=== PATIENT | female | born 1975 | race Caucasian/White ===

== ENCOUNTER → 2018-08-23 08:25 | Outpatient (CLI) | payer BC, OTHER, SELFPAY ==
--- NOTE | 2018-08-23 08:39 | MM_ITS ---
MM Dig screening mamm BI w/CAD ORDERING PHYSICIAN : Ajith Valentin PATIENT AGE: 43 years GENDER: Female COMPARISON: September 2015 bilateral mammogram. July 2016 bilateral mammogram. INDICATION: ITS.REASON: SCREENING no hormones. No new complaints previous cyst aspiration right breast. . Noncontributory family history TECHNIQUE: Standard CC and MLO images were obtained. R2 CAD reviewed. FINDINGS: Low-density breast bilaterally with generalized fatty replacement. RIGHT BREAST:No areas of, or concern on right breast. Follow-up in one year. LEFT BREAST: No new areas of concern Small nodular density at the lateral left breast adequately stable with well-defined margins. It measures up to nearly 7 mm a similar to 2016. It can be followed.. Intramammary Lymph node are in this region at 2:00 on a previous 2016 mammogram/ultrasound. IMPRESSION: No new areas of concern either breast. Follow-up in one year recommended Stable small benign-appearing nodule, most likely stable intramammary node, at upper-outer quadrant left breast BI-RADS Category: 2 Benign Finding(s) RECOMMENDED FOLLOW-UP: 1YR 1 YEAR FOLLOW-UP (A letter has been sent to the patient regarding results of the study.)
== END ==
PROVIDERS: PCP Family Medicine; Visit Provider Family Medicine
DX: Z12.31 Encounter for screening mammogram for malignant neoplasm of breast (principal)
CPT/HCPCS: 77067

== ENCOUNTER → 2019-08-31 08:01 | Outpatient (CLI) | payer OTHER, SELFPAY ==
--- NOTE | 2019-08-31 08:03 | MM_ITS ---
PROCEDURE: MM DIG SCREENING MAMM BI W/CAD CLINICAL INDICATION: SCREENING There is no personal or family history of breast cancer. There has been a previous cyst aspiration right breast. COMPARISON: DMDB DIG MAMM-DX TAZ from 09/20/2015 [facility]B DIG MAMM-DX TAZ from 07/21/2016 [facility] MM Dig screening mamm BI w/CAD from 08/23/2018 TECHNIQUE: Standard CC and MLO images were obtained. R2 CAD reviewed. FINDINGS: The breasts are composed primarily of fat with minimal scattered fiberglass densities throughout each breast. There is a stable low-lying left axillary density likely a low-lying node. There is a stable small benign-appearing nodular density upper-outer quadrant left breast. There is no suspicious lesion and no suspicious microcalcifications. IMPRESSION: Fibrofatty parenchyma with no suspicious lesions seen BI-RAD Category: 2 Benign Finding(s) FOLLOW-UP: 1YR 1 Year Follow-up (A letter has been sent to the patient regarding results of the study.) Dictated by: Dr. Sundar Cali MD 09/04/2019 13:[address] Sundar Cali MD in [place] 09/04/2019 13:07
== END ==
PROVIDERS: PCP Family Medicine; Visit Provider Nurse Practitioner Family
DX: Z12.31 Encounter for screening mammogram for malignant neoplasm of breast (principal)
CPT/HCPCS: 77067

== ENCOUNTER → 2020-09-23 07:51 | Outpatient (CLI) | payer OTHER, SELFPAY ==
--- NOTE | 2020-09-23 07:55 | MM_ITS ---
PROCEDURE: MM DIG SCREENING MAMM BI W/CAD Referring Doctor: Zoë Alfonso Patient Age:45Y CLINICAL INDICATION: SCREENING COMPARISON: MG DMDB DIG MAMM-DX TAZ from 07/21/2016 [facility] MM Dig screening mamm BI w/CAD from 08/23/2018 MG MM DIG SCREENING MAMM BI W/CAD from 08/31/2019 TECHNIQUE: Standard CC and MLO images were obtained. R2 CAD reviewed. Bilateral digital breast tomosynthesis included. FINDINGS: Minimal residual fibroglandular elements low-density breast with generalized fatty replacement which which facilitate most mammography screening. No suspicious new masses or dominant masses but no significant suspicious calcifications. CAD computer review unremarkable Right breast but no new areas of concern the fall -Left breast-no new areas of concern Stable small intramammary lymph node lateral left breast of 4 mm size. Stable deep lymph nodes at the margin of both right and left MLO view. IMPRESSION: Stable mammogram. No new areas of concern. Low-density fatty breast which facilitate screening mammography BI-RAD Category: 1 Negative FOLLOW-UP: 1YR 1 Year Follow-up (A letter has been sent to the patient regarding results of the study.) Dictated by: Eugenio Garland MD 09/25/2020 11:23 Eugenio Garland MD in [place] 09/25/2020 11:23
== END ==
PROVIDERS: PCP Nurse Practitioner Family; Visit Provider Nurse Practitioner Family
DX: Z12.31 Encounter for screening mammogram for malignant neoplasm of breast (principal)
CPT/HCPCS: 77063; 77067

== ENCOUNTER → 2022-07-16 10:26 | Outpatient (CLI) | payer OTHER, SELFPAY ==
--- NOTE | 2022-07-16 10:30 | MM_ITS ---
PROCEDURE INFORMATION: Exam: MG Bilateral Screening 3D Mammography Exam date and time: 07/16/2022 10:24 AM Age: 47 years old Clinical indication: Screening examination TECHNIQUE: Imaging protocol: Bilateral Screening tomosynthesis and 2D mammography including computer-aided detection (CAD) when performed. COMPARISON: 1. MG MM DIG SCREENING MAMM BI W/CAD 09/23/2020 8:15 AM 2. MG MM DIG SCREENING MAMM BI W/CAD 08/31/2019 8:12 AM FINDINGS: MAMMOGRAPHY: Breast composition: The breasts are almost entirely fatty. Mass: None. Architectural distortion: None. Calcifications: No suspicious calcifications. Asymmetric density: None. Skin thickening: None. Axillary adenopathy: None. IMPRESSION: No mammographic evidence of malignancy. Annual screening is recommended unless otherwise clinically indicated. ASSESSMENT: BI-RADS Category 1: Negative
== END ==
PROVIDERS: PCP Family Medicine; Visit Provider Family Medicine
DX: Z12.31 Encounter for screening mammogram for malignant neoplasm of breast (principal)
CPT/HCPCS: 77063; 77067

== ENCOUNTER 2023-11-26 08:21 | Outpatient (CLI) | payer OTHER, SELFPAY ==
--- NOTE | 2023-11-26 08:28 | MM_ITS ---
PROCEDURE INFORMATION: Exam: MG Bilateral Screening 3D Mammography Exam date and time: 11/26/2023 8:18 AM Age: 48 years old Clinical indication: Screening examination TECHNIQUE: Imaging protocol: Bilateral Screening tomosynthesis and 2D mammography including computer-aided detection (CAD) when performed. COMPARISON: 1. MG MM DIG SCREENING MAMM BI W/CAD 07/16/2022 10:24 AM 2. MG MM DIG SCREENING MAMM BI W/CAD 09/23/2020 8:15 AM FINDINGS: MAMMOGRAPHY: Breast composition: The breasts are almost entirely fatty. Mass: None. Architectural distortion: None. Calcifications: No suspicious calcifications. Asymmetric density: None. Skin thickening: None. Axillary adenopathy: None. IMPRESSION: No mammographic evidence of malignancy. Annual screening is recommended unless otherwise clinically indicated. ASSESSMENT: BI-RADS Category 1: Negative
== END 2023-11-26 23:59 ==
LOC: RAD 08:23
PROVIDERS: PCP Nurse Practitioner Family; Visit Provider Nurse Practitioner Family
DX: Z12.31 Encounter for screening mammogram for malignant neoplasm of breast (principal)
CPT/HCPCS: 77063; 77067